=== PATIENT | female | born 1955 | race African-American/Black ===

== ENCOUNTER 2022-10-12 13:06 | Emergency (ER) | payer MEDICARE ==
[~2022-10-12] VITALS: Ht 165.1 cm; Wt 84.1 kg
[2022-10-12 13:15] VITALS: BP 121/87
== END 2022-10-12 17:08 | disposition home or self-care (01) ==
LOC: EMS 13:14
DX: M65.9 Synovitis and tenosynovitis, unspecified (principal); I10 Essential (primary) hypertension; Z98.890 Other specified postprocedural states; Z88.5 Allergy status to narcotic agent
CPT/HCPCS: 99283